=== PATIENT | male | born 1955 | race Caucasian/White ===

== ENCOUNTER 2017-02-26 04:33 | Emergency (ER) | payer MEDICARE, BC ==
[2017-02-26 05:01] LABS: Urine Bilirubin Negative (NEGATIVE); Urine Blood Negative /ul (NEGATIVE); Urine Ketone Negative (NEGATIVE); Urine Nitrite Negative (NEGATIVE); Urine Protein Negative (NEGATIVE); Urine Specific Gravity 1.025 SP.GR. (1.005-1.030); Urine Urobilinogen Normal (NORMAL)
[2017-02-26 05:07] LABS: Urine Amorphous Sediment Few - 1+ (NONE-FEW); Urine Appearance Clear; Urine Bacteria None Seen; Urine Color Pale Yellow; Urine RBC 0-5 /hpf (0-5); Urine WBC 0-5 /hpf (0-5)
--- NOTE | 2017-02-26 05:08 | ERNOTE ---
Abdominal HPI - General Chief Complaint: Abdominal Pain Time Seen by Provider: 02/26/17 05:00 Source: patient Exam Limitations: no limitations - Immun/Allergies/Home Medications Immunizatons: IMMUNIZATION HX Immunizations Up to Date Yes History of Influenza Vaccine No Hx Pneumococcal Vaccination No Allergies/Adverse Reactions: Allergies No Known Drug Allergies Allergy (Unknown, Verified 08/08/15 15:46) Home Medications: HOME MEDICATIONS Aspirin 81 mg PO DAILY 02/26/17 [Last Taken Unknown] metFORMIN HCL [Metformin HCl ER] 1,000 mg PO BID 02/26/17 [Last Taken Unknown] - History of Present Illness Narrative: Pt states he has had right sided abd pain for a few months. Worse when he lays down and improves when he is upright. Worsening over the past few days. Timing: getting worse Quality: moderate, severe, aching Activities at Onset: none Modifying Factors - (Improves): Present: sitting up Modifying Factors - (Worsens): Present: lying down Associated Symptoms: Absent: back pain, heartburn, nausea Review of Systems - Review of Systems Constitutional: Absent: recent illness Respiratory: Absent: shortness of breath Cardiology: Absent: chest pain Gastrointestinal/Abdominal: Present: See HPI Genitourinary: Present: no symptoms reported Musculoskeletal: Present: no symptoms reported Skin: Present: no symptoms reported Neurological: Present: no symptoms reported Endocrine: Present: no symptoms reported Hematologic/Lymphatic: Present: no symptoms reported Psych: Present: no symptoms reported - Patient's Past Medical History Patient History - Medical: Diabetes Type 2 Patient History - Cardiac/Respiratory: No pertinent hx Patient History - Cancer: No Hx of Cancer Patient History - Surgical Procedures: Total Knee Replacement, Hernia Repair Patient History - Other: None - Social History Living Situations: spouse Abuse History: No History of abuse Psych History: No pertinent hx Smoking Status: Former smoker Have you smoked in the past 12 months: No Do you dip or chew tobacco: No Alcohol Use: none Drug Use: none - Immunizations Immunizations Up to Date: Yes Hx Pneumococcal Vaccination: No History of Influenza Vaccine: No Physical Exam - Physical Exam General Appearance: Present: wd/wn, alert, mild distress Head Exam: Present: normal inspection, no evidence of injury Eye Exam: Normal inspection: bilateral Neck: Present: supple, full range of motion Respiratory: Present: no respiratory distress, normal breath sounds Cardiovascular/Chest: Present: regular rate, rhythm, no murmur Gastrointestinal/Abdominal: Present: tenderness - right upper and lower quads, distended - and moderately firm. Absent: guarding, rebound Extremity Exam: Present: normal inspection, normal range of motion Neurological Exam: Present: alert, oriented, normal mood/affect Skin Exam: Present: normal color, warm/dry Lymphatic Exam: Present: no adenopathy ED Progress - Results and Orders Patient's Lab Results:: I have reviewed the patient's lab results. Results and Orders: Laboratory Tests 02/26/17 02/26/17 02/26/17 04:58 05:14 05:14 WBC 8.3 Hgb 15.3 Hct 45.4 Plt Count 142 L Sodium 139 Potassium 4.3 Chloride 103 Carbon Dioxide 27.5 Anion Gap 12.8 BUN 17 Creatinine 1.05 Random Glucose 160 H Calcium 8.5 Total Bilirubin 0.4 AST 44 ALT 81 H Alkaline Phosphatase 80 Total Protein 7.5 Albumin 3.5 Amylase 32 Lipase 123 Urine Color Pale yellow Urine Appearance Clear Urine pH 6.0 Ur Specific [place] 1.025 Urine Protein Negative Urine Glucose (UA) Negative Urine Ketones Negative Urine Blood Negative Urine Nitrate Negative Urine Bilirubin Negative Urine Urobilinogen Normal Ur Leukocyte Esterase Negative Urine RBC 0-5 Urine WBC 0-5 Ur Epithelial Cells 10-25 H Amorphous Sediment Few - 1+ Urine Bacteria None seen Urine Culture Comments No culture indicated - Vital Signs Patient's Vital Signs:: I have reviewed the patient's vital signs. Vital Signs: Vital Signs 02/26/17 04:41 Temperature 36.8 C Pulse Rate 55 L Respiratory 16 Rate Blood Pressure 176/86 O2 Sat by Pulse 95 Oximetry - X-Ray X-Ray #1 X-Ray: abdomen Interpretation: Interp. by me X-ray Comments: bridging spurs on multiple levels of the thoracic and lumbar spine. mild stool retention no illius or obstruction - Progress/Reassessment Chief Complaint: Abdominal Pain Departure - Departure Clinical Impression: Abdominal pain Qualifiers: Abdominal location: right upper quadrant Qualified Code(s): R10.11 - Right upper quadrant pain Disposition: Home Follow Up Needed Condition: Good Instructions: Abdominal Pain, Adult, [id number] Additional Instructions: See your regular doctor for further evaluation of the cause of your pain Referrals: Sofia Brooks DO [Primary Care Provider] -
[2017-02-26 05:16] LABS: Hematocrit 45.4 % (42.0-52.0); Hemoglobin 15.3 gm/dL (13.5-18.0); Mean Cell Volume 90.1 fl (78-100); Mean Corpuscular Hemoglobin 30.4 pg (27-31); Mean Corpuscular Hgb Conc 33.7 g/dl (32-36); Mean Platelet Volume 11.2 fl (6.0-9.5); Neutrophil # 4.7 K/mm3 (1.3-6.0); Platelet Count 142 K/mm3 (150-450); Red Blood Count 5.04 M/mm3 (4.7-6.0); Red Cell Distribution Width 12.9 % (11.5-14.0); White Blood Count 8.3 K/mm3 (4.0-10.5)
[2017-02-26 05:31] LABS: Albumin * 3.5 gm/dl (3.4-5.0); Anion Gap 12.8 mmol/L (6.8-13.8); BUN/Creatinine Ratio 16.2 (9.0-21.6); Bilirubin, Total 0.4 mg/dL (0.0-1.1); Ca. Corrected For Albumin 8.6 mg/dL (8.4-10.2); Calcium * 8.5 mg/dL (7.9-10.9); Carbon Dioxide 27.5 mmol/L (24-32.6); Potassium 4.3 mmol/L (3.4-4.6); Total Protein 7.5 gm/dL (6.2-8.2)
[2017-02-26] MEDS ORDERED: DIATRIZOATE MEGLUMINE, SODIUM 30 ML BTL PO ONE (05:32)
[2017-02-26] MEDS ORDERED: DIATRIZOATE MEGLUMINE, SODIUM 30 ML BTL ONE (05:33)
[2017-02-26] MEDS ORDERED: LORazepam 2 MG/ML DISP.SYRIN IV ONE (06:48)
[2017-02-26] MEDS ORDERED: LORazepam 2 MG/ML DISP.SYRIN ONE (06:50)
[2017-02-26 08:32] VITALS: BP 178/82
== END 2017-02-26 08:35 | disposition home or self-care (01) ==
LOC: ER 04:33
DX: R10.11 Right upper quadrant pain (principal); E11.9 Type 2 diabetes mellitus without complications; Z87.891 Personal history of nicotine dependence